=== PATIENT | male | born 1960 | race Native Hawaiian/Other Pacific Islander ===

== ENCOUNTER 2018-10-27 14:45 | Emergency (ER) | payer BC, OTHER ==
--- NOTE | 2018-10-27 15:04 | Emergency Department Report ---
Blank Doc - Documentation Documentation: This is a 58-year-old male that presents with diffuse abdominal pain with nausea and vomiting. Denies any other complaints or symptoms This initial assessment diagnostic orders/clinical plan/treatment(s) is/are subject to change based on patient's health status, clinical progression and re- assessment by fellow clinical providers in the ED. Further treatment and workup at subsequent clinical providers discretion. Patient/guardians urged not to elope from ED s their condition may be serious if not clinically assessed and managed. Initial orders include: 1-Patient sent to [facility] for further evaluation and treatment 2- UA 3- Labs
[2018-10-27 15:41] LABS: Basophils % (Auto) 0.3 % (0.0-1.8); Hematocrit 48.1 % (35.5-45.6); Hemoglobin 16.5 gm/dl (11.8-15.2); Lymphocytes # (Auto) 1.8 K/mm3 (1.2-5.4); Lymphocytes % (Auto) 16.7 % (13.4-35.0); Mean Corpuscular HGB Conc 34 % (32-34); Mean Corpuscular Volume 95 fl (84-94); Monocytes # (Auto) 0.4 K/mm3 (0.0-0.8); Monocytes % (Auto) 3.7 % (0.0-7.3); Platelet Count 193 K/mm3 (140-440); Red Blood Count 5.05 M/mm3 (3.65-5.03); Red Cell Distribution Width 13.2 % (13.2-15.2)
[2018-10-27 15:43] LABS: Bilirubin,Urine NEG (Negative); Blood,Urine NEG (Negative); Color,Urine Yellow (Yellow); Mucus,Urine FEW /HPF; Urobilinogen,Urine < 2.0 mg/dL (<2.0)
[2018-10-27 16:10] LABS: Alanine Aminotransferase 17 units/L (7-56); Albumin 4.4 g/dL (3.9-5); BUN/Creatinine Ratio 14; Blood Urea Nitrogen 11 mg/dL (9-20); Calcium 9.2 mg/dL (8.4-10.2); Hemolysis Index 13
[2018-10-27] MEDS ORDERED: MORPHINE ONE (20:42)
[2018-10-27] MEDS ORDERED: ZOFRAN ONE (20:42)
[2018-10-27] MEDS ORDERED: NACL 0.9% 1000 ML 1,000 ML ONE (20:42)
[2018-10-27] MEDS ORDERED: NACL 0.9% 1000 ML 1,000 ML IV ONE (20:49)
[2018-10-27] MEDS ORDERED: ZOFRAN IV ONE (20:49)
[2018-10-27] MEDS ORDERED: MORPHINE IV ONE (20:50)
[2018-10-27 21:49] VITALS: BP 118/62
--- NOTE | 2018-10-27 22:47 | Cat Scan Report ---
FINAL REPORT PROCEDURE: CT ABDOMEN PELVIS W CON TECHNIQUE: Computerized axial tomography of the abdomen and pelvis was performed after the IV inject ion of iodinated nonionic contrast. HISTORY: epigastric pain with nausea and vomiting. COMPARISON: No prior studies are available for comparison. FINDINGS: Liver, spleen, pancreas and adrenal glands are within normal limits. 3.4 centimeters cystic lesion is noted involving the upper pole left kidney. 4 millimeter nonobstructive calculus is noted in the upp er portion left kidney. There is no obstructive uropathy. Urinary bladder is partially filled with no rmal outlines. Aorta is of normal caliber. There is no free fluid or free air. Status post cholecyste ctomy. Small bowel loops are within normal limits. Multiple colonic diverticular noted without eviden ce of diverticulitis. Appendix is normal. Degenerative changes are noted at L5-S1. IMPRESSION: 4 millimeters nonobstructive calculus left kidney Well-defined cystic lesion left kidney most likely represents a simple cyst No acute intra-abdominal or pelvic pathology
--- NOTE | 2018-10-27 23:24 | Emergency Department Report ---
ED Abdominal Pain HPI - General Chief Complaint: Abdominal Pain Stated Complaint: ABD PAIN/VOMITING X4DAYS Time Seen by Provider: 10/27/18 14:56 Source: patient Mode of arrival: Ambulatory Limitations: No Limitations - History of Present Illness Initial Comments: 58-year-old male comes in with complaint of abdominal pain 4 days with vomiting for 4 days. Patient reports that the pain is epigastric and sharp in nature is constant pain nothing makes it better vomiting makes it worse. Patient does admit to sick contact his mother. He has nausea vomiting and a little diarrhea. Patient has been taking ranitidine that was prescribed to him by his primary care doctor which is Dr. Richard Higuera. Patient reports that he has chronic abdominal pain and review of medical records shows patient has liver disease with possible cirrhosis. Patient past surgical was a cholecystectomy. Patient reports he is on Carbolena. MD Complaint: abdominal pain -: days(s) (4) Location: epigastric Radiation: none Migration to: no migration Severity scale (0 -10): 10 Quality: sharp Consistency: constant Improves With: nothing Worsens With: vomiting Context: sick contacts Associated Symptoms: nausea, vomiting, diarrhea Treatments Prior to Arrival: antacids - Related Data Previous Rx's Medication Instructions Recorded Last Taken Type Ibuprofen [Motrin] 800 mg PO TID 10 Days tablet 05/15/13 Unknown Rx Methocarbamol [Robaxin] 750 mg PO BID 7 Days tab 05/15/13 Unknown Rx Ciprofloxacin HCl [Cipro] 500 mg PO QDAY #5 tablet 10/27/18 Unknown Rx HYDROcodone/ACETAMINOPHEN [[place] 1 each PO Q6H #12 tablet 10/27/18 Unknown Rx 7.5-325 Tablet] Ibuprofen [Motrin 800 MG tab] 800 mg PO Q8HR PRN #30 tablet 10/27/18 Unknown Rx Tamsulosin HCl [Flomax] 0.4 mg PO QDAY #5 cap.er.24h 10/27/18 Unknown Rx Allergies Allergy/AdvReac Type Severity Reaction Status Date / Time No Known Allergies Allergy Unverified 05/15/13 15:22 ED Review of Systems ROS: Stated complaint: ABD PAIN/VOMITING X4DAYS Other details as noted in HPI Comment: All other systems reviewed and negative Constitutional: denies: chills, fever Eyes: denies: eye pain, eye discharge, vision change ENT: denies: ear pain, throat pain Respiratory: denies: cough, shortness of breath, wheezing Cardiovascular: denies: chest pain, palpitations Endocrine: no symptoms reported Gastrointestinal: abdominal pain, nausea, vomiting, diarrhea Genitourinary: denies: urgency, dysuria Musculoskeletal: denies: back pain, joint swelling, arthralgia Skin: denies: rash, lesions Neurological: denies: headache, weakness, paresthesias Psychiatric: denies: anxiety, depression Hematological/Lymphatic: denies: easy bleeding, easy bruising ED Past Medical Hx - Surgical History Hx Cholecystectomy: Yes - Social History Smoking Status: Never Smoker Substance Use Type: None - Medications Home Medications: Home Medications Medication Instructions Recorded Confirmed Last Taken Type Ibuprofen [Motrin] 800 mg PO TID 10 Days tablet 05/15/13 Unknown Rx Methocarbamol [Robaxin] 750 mg PO BID 7 Days tab 05/15/13 Unknown Rx Ciprofloxacin HCl [Cipro] 500 mg PO QDAY #5 tablet 10/27/18 Unknown Rx HYDROcodone/ACETAMINOPHEN [[place] 1 each PO Q6H #12 tablet 10/27/18 Unknown Rx 7.5-325 Tablet] Ibuprofen [Motrin 800 MG tab] 800 mg PO Q8HR PRN #30 tablet 10/27/18 Unknown Rx Tamsulosin HCl [Flomax] 0.4 mg PO QDAY #5 cap.er.24h 10/27/18 Unknown Rx ED Physical Exam - General Limitations: No Limitations General appearance: alert, in no apparent distress, other (appears to be uncomfortable.) - Head Head exam: Present: atraumatic, normocephalic - Eye Eye exam: Present: normal appearance, EOMI - ENT ENT exam: Present: mucous membranes moist - Neck Neck exam: Present: normal inspection - Respiratory Respiratory exam: Present: normal lung sounds bilaterally. Absent: respiratory distress - Cardiovascular Cardiovascular Exam: Present: regular rate, normal rhythm. Absent: systolic murmur, diastolic murmur, rubs, gallop - GI/Abdominal GI/Abdominal exam: Present: soft, tenderness, normal bowel sounds. Absent: distended, guarding (a gastric) - Rectal Rectal exam: Present: deferred - Extremities Exam Extremities exam: Present: normal inspection - Back Exam Back exam: Present: normal inspection - Neurological Exam Neurological exam: Present: alert, oriented X3 - Psychiatric Psychiatric exam: Present: normal affect, normal mood - Skin Skin exam: Present: warm, dry, intact, normal color. Absent: rash ED Course Vital Signs 10/27/18 10/27/18 10/27/18 15:14 20:54 21:48 Temperature 98.3 F 98.9 F Pulse Rate 56 L 88 Respiratory 20 19 18 Rate Blood Pressure 125/68 Blood Pressure 118/62 [Right] O2 Sat by Pulse 98 Oximetry ED Medical Decision Making - Lab Data Result diagrams: 10/27/18 15:24 10/27/18 15:24 Critical care attestation.: If time is entered above; I have spent that time in minutes in the direct care of this critically ill patient, excluding procedure time. ED Disposition Clinical Impression: Kidney stone Disposition: DC-01 TO HOME OR SELFCARE Is pt being admited?: No Does the pt Need Aspirin: No Condition: Stable Instructions: Kidney Stones (ED), How to Strain Your Urine (ED) Additional Instructions: Please take medication as prescribed. It's very important for you to follow up with urology. Please increase her water intake by 2-3 L daily. Por favor, tome los medicamentos segn lo prescrito. Es muy importante que ritu un seguimiento con urologa. Por favor, aumente medley consumo de agua en 2-3 L diariamente. Prescriptions: Ciprofloxacin HCl [Cipro] 500 mg PO QDAY #5 tablet HYDROcodone/ACETAMINOPHEN [[place] 7.5-325 Tablet] 1 each PO Q6H #12 tablet Ibuprofen [Motrin 800 MG tab] 800 mg PO Q8HR PRN #30 tablet PRN Reason: Pain , Severe (7-10) Tamsulosin HCl [Flomax] 0.4 mg PO QDAY #5 cap.er.24h Referrals: RICHARD HIGUERA MD [Primary Care Provider] - 3-5 Days CANDACE REYES MD [Staff Physician] - 3-5 Days Forms: Accompanied Note, Work/School Release Form(ED) Print Language: ARMENIAN
[2018-10-27 23:48] LABS: Bilirubin,Urine NEG (Negative); Blood,Urine NEG (Negative); Color,Urine Yellow (Yellow); Mucus,Urine 3+ /HPF; Urobilinogen,Urine < 2.0 mg/dL (<2.0)
[2018-10-28] MEDS ORDERED: TORADOL IV ONE (00:07)
[2018-10-28] MEDS ORDERED: TORADOL ONE (00:08)
== END 2018-10-28 00:12 | disposition home or self-care (01) ==
LOC: ED 14:45
DX: N20.0 Calculus of kidney (principal)
CPT/HCPCS: 36415; 74177; 80053; 81001; 83690; 85025; 96361; 96374; 96375; 99284; J1885; J2270; J2405; J7030; Q9967